=== PATIENT | male | born 1970 | race Caucasian/White ===

== ENCOUNTER 2018-10-29 13:12 | Outpatient (CLI) | payer OTHER, SELFPAY ==
--- NOTE | 2018-10-29 13:23 | DI.RAD_ITS ---
SYMPTOM/DIAGNOSIS: COUGH,WHEEZING, R05,R06.2 PA AND LATERAL CHEST: The cardiac and mediastinal contours have a normal appearance. The lungs are well inflated and clear. No infiltrate or effusion is seen. IMPRESSION: Negative chest xray.
== END 2018-10-29 13:32 ==
PROVIDERS: PCP Nurse Practitioner Family; Visit Provider Nurse Practitioner Family
DX: R05 Cough (principal); R06.2 Wheezing
CPT/HCPCS: 71046

== ENCOUNTER 2021-04-11 09:27 | Outpatient (REF) | payer BC, SELFPAY ==
[2021-04-11 13:35] LABS: Calculated LDL 141 mg/dL (<100); Cholesterol 210 mg/dL (<200); HDL Cholesterol 58 mg/dL (40-60); Triglyceride 59 mg/dL (<150)
== END 2021-04-11 09:28 | disposition home or self-care (01) ==
LOC: NCHCN 09:27
PROVIDERS: PCP Nurse Practitioner Family; Visit Provider Internal Medicine
DX: Z00.00 Encounter for general adult medical examination without abnormal findings (principal); Z13.220 Encounter for screening for lipoid disorders
CPT/HCPCS: 80061

== ENCOUNTER 2025-01-07 08:24 | Emergency (ER) | payer BC, SELFPAY ==
[2025-01-07 08:29] VITALS: BP 128/77; PULSE 84; RESP 18; TEMP 37.1; O2SAT 95
--- NOTE | 2025-01-07 08:30 | DI.RAD_ITS ---
Exam(s) XR HIP RT COMPLETE AP PELVIS EXAM: XR HIP RT COMPLETE AP PELVIS CLINICAL HISTORY: R hip pain. TECHNIQUE: 2D digital imaging was performed of the right hip. Two images were obtained. AP pelvis a nd lateral right hip views were obtained. COMPARISON: CR RIGHT HIP COMPLETE from 02/04/2013 FINDINGS: BONES: No acute fracture is present. No bony destructive lesion is seen. JOINTS: No dislocation present. There are mild degenerative changes seen in the right hip. The left hip is well maintained. SOFT TISSUE: Normal. IMPRESSION: No acute fracture or dislocation. DATA REPOSITORY: RADIATION DOSE DELIVERED:
--- NOTE | 2025-01-07 08:30 | DI.RAD_ITS ---
Exam(s) XR LUMBAR SPINE COMPLETE EXAM: XR LUMBAR SPINE COMPLETE CLINICAL HISTORY: Right leg radiculopathy. TECHNIQUE: 2D digital imaging was performed of the lumbar spine. Five images were obtained. AP, la teral, right oblique, left oblique and L5-S1 spot views were obtained. COMPARISON: No exams were available for comparison FINDINGS: BONES: No fracture or destructive lesion. There are endplate osteophytes at several levels of the lum bar spine. There is a Schmorl's node at the inferior aspect of L1. No facet hypertrophy identified. DISKS: There is disc space narrowing at L1-L2, L3-L4 and L4-L5. ALIGNMENT: There is a left convex lumbar scoliosis. No spondylolysis or spondylolisthesis. SOFT TISSUE: Normal. IMPRESSION: 1. Moderate degenerative changes seen in the lumbar spine. 2. No acute fracture or subluxation. DATA REPOSITORY: RADIATION DOSE DELIVERED:
--- NOTE | 2025-01-07 08:35 | ED.GENADUL_ITS ---
Discharge Plan Disposition Patient Disposition: Home Condition: Stable Discharge Details Clinical Impression: Degenerative joint disease (DJD) of hip, Degenerative joint disease (DJD) of lumbar spine Primary Care Provider: Eleni Ventura ED Provider: Catrachita Benitez Home Meds and New Rx's Prescriptions: New cyclobenzaprine 10 mg tablet 10 mg PO TID PRN (Reason: muscle spasm) Qty: 10 0RF Rx Instructions: Take 1 tablet up to 3 times daily as needed for muscle spasm oxycodone-acetaminophen [Percocet] 5-325 mg tablet 1 tab PO Q8H PRN (Reason: pain) Qty: 7 0RF Rx Instructions: Take 1 tablet 3 times with food daily as needed for moderate to severe pain prednisone 50 mg tablet 50 mg PO DAILY 5 Days Qty: 5 0RF Rx Instructions: Take 1 tablet daily for the next 5 days Discharge Instructions Instructions: Osteoarthritis, Hip pain in adults Additional Instructions: At this time x-rays show degenerative changes or osteoarthritis in your lower back and your bilateral hips. Please take the medications as prescribed over the next few days. Only take the Percocet as needed for moderate to severe pain or to sleep. Do not operate heavy machinery while taking this medication as it may make you sleepy. Please take the medications with food. Alternate ice and heat you can also apply topical Voltaren cream which you can get [id number]. Please take Tylenol or Ibuprofen with food every 4-6 hours as needed for pain and swelling. Follow up with primary care provider in 3-5 days. Return to ED sooner if any worsening or concerns. Thank you for allowing us to care for you today. Referrals: Eleni Ventura [Primary Care Provider] - 3 days Discharge Data Discharge Date/Time-TO BE ENTERED AT DEPARTURE: 01/07/25 10:32 HPI General Mode of arrival: ambulatory . Date/Time Provider Initiated Documentation: 01/07/25 08:27 . Limitations to Documentation: no limitations . Information obtained by: patient, RN notes reviewed and old records reviewed . HPI Narrative: 54-year-old male presents to the ER with a chief complaint of right hip pain which radiates into his right thigh and knee which has been worse over the last 2 weeks. He does have a history of radiculopathy with foot drop. He has not been seen here since 2012. He has been followed for this at [facility]. Takes Aleve for his pain. He denies any recent injuries however he does do heavy lifting and shoveling. He denies any problems urinating or burning with urination. Denies any numbness tingling loss of bowel or bladder control. He did take some Aleve this morning prior to arrival. No other associated symptoms. Related Data Home Medications ?Medication ?Instructions ?Recorded ?Confirmed cyclobenzaprine 10 mg tablet 10 mg PO TID PRN muscle spasm #10 01/07/25 tabs oxycodone-acetaminophen 5 mg-325 1 tab PO Q8H PRN pain #7 tabs 01/07/25 mg tablet (Percocet) prednisone 50 mg tablet 50 mg PO DAILY Inflammation 5 days 01/07/25 #5 tabs Previous Rx's ?Medication ?Instructions ?Recorded cyclobenzaprine 10 mg tablet 10 mg PO TID PRN muscle spasm #10 01/07/25 tabs oxycodone-acetaminophen 5 mg-325 1 tab PO Q8H PRN pain #7 tabs 01/07/25 mg tablet (Percocet) prednisone 50 mg tablet 50 mg PO DAILY Inflammation 5 days 01/07/25 #5 tabs Allergies Allergy/AdvReac Type Severity Reaction Status Date / Time No Known Allergies Allergy Unverified 01/07/25 08:31 General Stated Complaint: Nk/Back Pain MERT: 3 Review of Systems All systems reviewed & are unremarkable except as noted in HPI and below Genitourinary Genitourinary: Denies hematuria, Denies genital pain, Denies dysuria, Denies scrotal swelling, Denies testicular mass and Denies testicular pain Musculoskeletal Musculoskeletal: Reports as per HPI, Reports abnormal gait (mild limp), Denies back pain, Reports arthralgias (Right hip), Reports radiating pain into limb (Right thigh) and Reports stiffness Neurologic Neurologic: Reports abnormal gait (mild limp), Reports localized weakness (Hx of r foot drop x 11 yrs) and Reports radicular pain Exam Narrative Exam Narrative: Constitutional: Alert and oriented x3. Appears stated age. Normal body habitus. Head: Normocephalic, no trauma. Eyes: Pupils PERRL, Red reflex noted, EOM's intact. Eyelids symmetrical without lesions, discharge, or swelling. ENT: Bilateral TM's WNL, External ear normal to inspection, no mastoid TTP, swelling, or erythema, Nasal turbinates WNL, no nasal discharge. Normal dentition, Posterior pharynx WNL, no exudate. Chest: RRR, Normal S1, S2, distal pulses intact. Resp: Lungs clear to auscultation bilaterally, no wheezes, rales, or rhonchi. Abdomen: Soft, non-distended, Normoactive bowel sounds all 4 quads. Musculoskeletal: Normal gait, Moves all 4 extremities without difficulty. Skin: No suspicious rashes or lesions. Capillary refill less than 2 sec. Neurologic: Cranial nerves II-XII intact. Alert and oriented x 3. Motor: No deficits noted. Sensory: Intact bilaterally all 4 extremities. Hematologic/Lymphatic: No ecchymosis, no lymphadenopathy. Back/Spine/Pelvis Thoracic/Lumbar Spine: thoracic and lumbar spine normal to inspection Pelvis: no pain with anterior-posterior compression Course Vital Signs Vital signs: Vital Signs Temperature 37.1 C 01/07/25 08:29 Pulse 84 01/07/25 08:29 Respiratory Rate 18 01/07/25 08:29 Blood Pressure 128/77 01/07/25 08:29 Pulse Oximetry 95 01/07/25 08:29 Temperature 37.1 C 01/07/25 08:29 Temperature Source Oral 01/07/25 08:29 Pulse 84 01/07/25 08:29 Respiratory Rate 18 01/07/25 08:29 Blood Pressure 128/77 01/07/25 08:29 Pulse Oximetry 95 01/07/25 08:29 Medical Decision Making 54-year-old male presents to the ER with a chief complaint of right hip pain which radiates into his right thigh and knee which has been worse over the last 2 weeks. He does have a history of radiculopathy with foot drop. He has not been seen here since 2012. He has been followed for this at [facility]. Takes Aleve for his pain. He denies any recent injuries however he does do heavy lifting and shoveling. He denies any problems urinating or burning with urination. Denies any numbness tingling loss of bowel or bladder control. He did take some Aleve this morning prior to arrival. No other associated symptoms. X-ray of right hip and L-spine ordered due to radiculopathy. Percocet, prednisone and Flexeril. X-rays show degenerative changes. No acute fracture or dislocation. Patient feeling better. X-rays show degenerative changes. Will discharge with the above medications with instructions to follow-up as needed. Patient discharged home ambulatory without assistance. This text was generated using [employer] system, please disregard any oddities of phrase or misspellings. Imaging Data Radiologic Study: Imaging: X-Ray Radiologist's impression: TECHNIQUE: Imaging protocol: Radiologic exam of the right hip. Views: 2 or 3 views hip with pelvis when performed. COMPARISON: CR XR LUMBAR SPINE COMPLETE 01/07/2025 8:50 AM FINDINGS: Bones/joints: Degenerative changes in both hips and sacroiliac joints. There is no evidence of acute fracture.There is no evidence of malalignment or dislocation. Soft tissues: Unremarkable. IMPRESSION: There is no evidence of acute fracture.There is no evidence of malalignment or dislocation. Thank you for allowing us to participate in the care of your patient. Dictated and Authenticated by: Jose Byrnes MD Radiologic Study #2: Imaging: X-Ray Radiologist's impression: Views: 4 or 5 views. COMPARISON: No relevant prior studies available. FINDINGS: Bones/joints: Levoscoliosis of the lumbar spine. There is no evidence of acute fracture.There is no evidence of malalignment or dislocation. Intervertebral disc spaces are narrowed L1/L2 and L3 through S1 consistent with degenerative disc disease. Anterior osteophyte formation L2 through L5 Soft tissues: Unremarkable. IMPRESSION: 1. There is no evidence of acute fracture.There is no evidence of malalignment or dislocation. 2. Intervertebral disc spaces are narrowed L1/L2 and L3 through S1 consistent with degenerative disc disease. Thank you for allowing us to participate in the care of your patient. Dictated and Authenticated by: Jose Byrnes MD Quality:SDOH Health Related Social Needs: No Data to Display PFSH All Active Problems (Updated 01/07/25 @ 10:13 by Catrachita Benitez NP) Degenerative joint disease (DJD) of lumbar spine (Acute) Degenerative joint disease (DJD) of hip (Acute) Social History Smoking/Tobacco Use Status: Former Tobacco Use Smoking risk assessment performed?: Yes Alcohol Intake: current Alcohol Intake frequency: a few times a week Drug use: Never Substance use type: does not use Do you feel safe at home: Yes Do you feel safe in your relationship?: Yes PAWSS Have you Been Recently Intoxicated or Drunk Within the Last 30 days?: No Have you Ever Experienced Previous Episodes of Alcohol Withdrawal?: No Have you ever Experienced Withdrawal Seizures?: No Have you ever Experienced Delirium Tremens(DT)s?: No Have you ever undergone Alcohol Rehabilitation Treatment (i.e, inpt ot outpatient treatment programs)?: No Have you ever Experienced Blackouts?: No Have you ever Combined Alcohol with other Downers within the last 90 days?: No Have you ever Combined Alcohol with any other Substance of Abuse during the last 90 days?: No Positive Blood Alcohol level on Presentation? [PCS.BAL]: No Evidence of Increased Autonomic Activity (i.e. HR>120, tremor, sweating, agitation, nausea)?: No Result: 0
[2025-01-07] MEDS: oxyCODONE 5 mg/Acetaminophen 325 mg TAB 1 TAB PO (09:06)
[2025-01-07] MEDS: Cyclobenzaprine 10 MG TAB PO (09:06)
[2025-01-07] MEDS: predniSONE 20 MG TAB 60 MG PO (09:07)
--- NOTE | 2025-01-07 09:55 | DI.VRAD_ITS ---
PROCEDURE INFORMATION: Exam: XR Right Hip Exam date and time: 01/07/2025 8:55 AM Age: 54 years old Clinical indication: Other: Right leg radiculopathy TECHNIQUE: Imaging protocol: Radiologic exam of the right hip. Views: 2 or 3 views hip with pelvis when performed. COMPARISON: CR XR LUMBAR SPINE COMPLETE 01/07/2025 8:50 AM FINDINGS: Bones/joints: Degenerative changes in both hips and sacroiliac joints. There is no evidence of acute fracture.There is no evidence of malalignment or dislocation. Soft tissues: Unremarkable. IMPRESSION: There is no evidence of acute fracture.There is no evidence of malalignment or dislocation. Dictated and Authenticated by: Jose Byrnes MD. Orderin Emmanuel Domínguez MD
[2025-01-07 09:56] VITALS: BP 133/73; PULSE 88; RESP 16; O2SAT 97
--- NOTE | 2025-01-07 09:56 | DI.VRAD_ITS ---
PROCEDURE INFORMATION: Exam: XR Lumbosacral Spine Exam date and time: 01/07/2025 8:50 AM Age: 54 years old Clinical indication: Other: Right leg radiculopathy TECHNIQUE: Imaging protocol: Radiologic exam of the lumbosacral spine. Views: 4 or 5 views. COMPARISON: No relevant prior studies available. FINDINGS: Bones/joints: Levoscoliosis of the lumbar spine. There is no evidence of acute fracture.There is no evidence of malalignment or dislocation. Intervertebral disc spaces are narrowed L1/L2 and L3 through S1 consistent with degenerative disc disease. Anterior osteophyte formation L2 through L5 Soft tissues: Unremarkable. IMPRESSION: 1. There is no evidence of acute fracture.There is no evidence of malalignment or dislocation. 2. Intervertebral disc spaces are narrowed L1/L2 and L3 through S1 consistent with degenerative disc disease. Dictated and Authenticated by: Jose Byrnes MD. Orderin Emmanuel Domínguez MD
[2025-01-07 10:29] VITALS: BP 125/66; PULSE 79; RESP 16; O2SAT 97
== END 2025-01-07 10:32 | disposition home or self-care (01) ==
PROVIDERS: Emergency Provider Registered Nurse Emergency; PCP Nurse Practitioner Family
DX: M16.11 Unilateral primary osteoarthritis, right hip (principal); M47.26 Other spondylosis with radiculopathy, lumbar region
CPT/HCPCS: 99283; 72110; 73502; J7512

== ENCOUNTER 2025-01-11 17:49 | Outpatient (REF) | payer BC, SELFPAY ==
[2025-01-11 21:28] LABS: ALT 49 U/L (16-63); AST 34 U/L (15-37); Albumin 4.1 g/dL (3.4-5.0); Alkaline Phosphatase 92 U/L (46-116); Anion Gap 5.4 mmol/L (3-11); BUN 19 mg/dL (7-18); CO2 30.6 mmol/L (21.0-32.0); CREATININE 0.9 mg/dL (0.70-1.30); Calculated LDL 149 mg/dL (<100); Chloride 102 mmol/L (98-107); Cholesterol 232 mg/dL (<200); Estimated GFR 101.49 (mL/min/1.73m2); Glucose 219 mg/dL (74-106); HDL Cholesterol 62 mg/dL (40-60); Potassium 4.5 mmol/L (3.5-5.1); Sodium 138 mmol/L (136-145); Total Protein 7.8 g/dL (6.4-8.2); Triglyceride 105 mg/dL (<150)
== END 2025-01-11 17:50 | disposition home or self-care (01) ==
LOC: NCHCN 17:49
PROVIDERS: PCP Nurse Practitioner Family; Visit Provider Internal Medicine
DX: E78.5 Hyperlipidemia, unspecified (principal)
CPT/HCPCS: 80053; 80061

== ENCOUNTER 2025-01-14 05:35 | Emergency (ER) | payer BC, SELFPAY ==
[2025-01-14 05:39] VITALS: BP 162/97; PULSE 87; RESP 18; TEMP 36.4; O2SAT 96
--- NOTE | 2025-01-14 05:42 | ED.GENADUL_ITS ---
Discharge Plan Disposition Patient Disposition: Home Condition: Stable Discharge Details Clinical Impression: Lumbar radiculopathy, right Primary Care Provider: Eleni Ventura ED Provider: Samson Parikh Home Meds and New Rx's Prescriptions: New gabapentin 300 mg capsule 300 mg PO TID Qty: 30 0RF Rx Instructions: take twice a day on the 01/15 then three times a day on 01/16 and there after methylprednisolone [Medrol ([place])] 4 mg tablets,dose pack See Rx Instructions .ROUTE .COMPLEX Qty: 21 0RF Rx Instructions: orally per package directions morphine 15 mg tablet 15 mg PO Q6H PRN (Reason: severe pain (scale score 7-10)) Qty: 16 0RF naloxone 4 mg/actuation spray,non-aerosol 4 mg intranasal Q2-3M PRN (Reason: opioid overdose) Qty: 2 0RF Rx Instructions: spray 1 dose into ONE nostril; alternate nostrils w each dose until help arrives Discontinued cyclobenzaprine 10 mg tablet 10 mg PO TID PRN (Reason: muscle spasm) Qty: 10 0RF Rx Instructions: Take 1 tablet up to 3 times daily as needed for muscle spasm oxycodone-acetaminophen [Percocet] 5-325 mg tablet 1 tab PO Q8H PRN (Reason: pain) Qty: 7 0RF Rx Instructions: Take 1 tablet 3 times with food daily as needed for moderate to severe pain Discharge Instructions Instructions: Radiculopathy of the neck and back (including sciatica), How to Give Naloxone ED, Opioids for Short-Term Treatment of Pain ED Additional Instructions: I suspect this pain is nerve related from the lumbar spine given its distribution and your description of the pain. You may discontinue the cyclobenzaprine and the oxycodone?acetaminophen. We will start you on gabap entin for the neuropathic portion of your pain. We will try another steroid dosing regimen. You may take 1 g of acetaminophen every 8 hours. You may take the morphine for severe pain. I provided naloxone prescription for safety reasons but if medications are taken as directed you should do fine. Please contact your primary care physician on Thursday for follow-up. Return to ED for any bladder or bowel dysfunction, loss of sensation, leg weakness that is new or different than your chronic foot drop, other concerns. Referrals: Eleni Ventura [Primary Care Provider] - HPI General Mode of arrival: ambulatory . Date/Time Provider Initiated Documentation: 01/14/25 05:42 . Limitations to Documentation: no limitations . Information obtained by: patient and RN notes reviewed . HPI Narrative: Patient presents to ED with worsening right sided lumbar pain radiating down the lateral thigh to the front of the knee. Pain is described as burning at this point. He was seen here on January 07 for similar pain though currently much worse and now burning. He was placed on prednisone for 5 days. He did follow- up with primary care and has been referred to physical therapy. Pain significantly worse over the last couple of days. He has chronic right foot drop and wears a brace. He has some old numbness from the lateral calf down to the dorsum of the foot that developed along with the foot drop. He has had previous back surgery. He denies having any bladder or bowel dysfunction and no perineal numbness or tingling. He has no new weakness. Denies any abdominal pain. Pain does not appear to to be worse with movement. Related Data Home Medications ?Medication ?Instructions ?Recorded ?Confirmed gabapentin 300 mg capsule 300 mg PO TID #30 caps 01/14/25 methylprednisolone 4 mg tablets in See Rx Instructions PO .COMPLEX 01/14/25 a dose pack (Medrol ([place])) #21 dose pk morphine 15 mg immediate release 15 mg PO Q6H PRN severe pain 01/14/25 tablet (scale score 7-10) #16 tabs naloxone 4 mg/actuation nasal spray 4 mg intranasal Q2-3M PRN opioid 01/14/25 overdose #2 ea Previous Rx's ?Medication ?Instructions ?Recorded gabapentin 300 mg capsule 300 mg PO TID #30 caps 01/14/25 methylprednisolone 4 mg tablets in See Rx Instructions PO .COMPLEX 01/14/25 a dose pack (Medrol ([place])) #21 dose pk morphine 15 mg immediate release 15 mg PO Q6H PRN severe pain 01/14/25 tablet (scale score 7-10) #16 tabs naloxone 4 mg/actuation nasal spray 4 mg intranasal Q2-3M PRN opioid 01/14/25 overdose #2 ea Allergies Allergy/AdvReac Type Severity Reaction Status Date / Time No Known Allergies Allergy Unverified 01/14/25 05:42 General Stated Complaint: Orthopedic MERT: 4 Exam Narrative Exam Narrative: Const: WDWN male in NAD. VS per triage. HEENT: NC/AT. Normal facial exam. Neck: Supple. Trachea midline. Lungs: Normal respiratory effort. Back: No TLS spine tenderness. No significant muscle tenderness elicited in the lower back. Neuro: A+O x 3. Normal speech, mentation. Cranial nerves II - XII grossly intact. Old right foot drop and decreased distal RLE sensation. No new weakness or sensory change. Plantar flexion, knee flexion/extension and hip flexion/extension in tact. Ext: No C/C/E. Course Vital Signs Vital signs: Vital Signs Temperature 97.6 F 01/14/25 05:39 Pulse 87 01/14/25 05:39 Respiratory Rate 18 01/14/25 05:39 Blood Pressure 162/97 H 01/14/25 05:39 Pulse Oximetry 96 01/14/25 05:39 Temperature 97.6 F 01/14/25 05:39 Temperature Source Tympanic 01/14/25 05:39 Pulse 87 01/14/25 05:39 Respiratory Rate 18 01/14/25 05:39 Blood Pressure 162/97 H 01/14/25 05:39 Blood Pressure Position Standing 01/14/25 05:39 Pulse Oximetry 96 01/14/25 05:39 Oxygen Delivery Method Room Air 01/14/25 05:39 Oxygen Flow Rate 0 01/14/25 05:39 Pain Level 9 01/14/25 05:39 Medical Decision Making Patient returns to ED with worsening right-sided back and thigh pain which seems to fit the L3/L4 dermatome. Previously has had L4-L5 back surgery and does have right foot drop and sensory changes in the L5 distribution which is old. Has taken 5 days of 50 mg prednisone. Has been using muscle relaxer and oxycodone with acetaminophen. Did see primary care and referred for physical therapy. Now pain is much worse and burning in nature very suggestive of neuropathic pain. No new neurologic changes and no indication for emergent MRI imaging. There is no suggestion of cauda equina. Will discontinue the cyclobenzaprine and the oxycodone with acetaminophen. Will start on gabapentin. Will redo anot her steroid pulse, use Medrol Dosepak. Continue plain Tylenol and provide prescription for immediate release morphine for severe pain. I did review the [facility] website and only previous prescription was for the oxycodone/acetaminophen. Will also provide prescription for naloxone though should be fine if he takes morphine as prescribed. He will need close follow-up with primary care and should call them Thursday. Return precautions provided. Medical Records Medical records reviewed: Yes I reviewed the patient's medical records. Medical records narrative: [facility] website PFS All Active Problems Lumbar radiculopathy, right (Acute) Degenerative joint disease (DJD) of lumbar spine (Acute) Degenerative joint disease (DJD) of hip (Acute) Medical History Foot drop, right foot Surgical History Previous back surgery Social History Smoking/Tobacco Use Status: Former Tobacco Use Smoking risk assessment performed?: Yes Alcohol Intake: current Alcohol Intake frequency: a few times a week Drug use: Never Substance use type: does not use Do you feel safe at home: Yes Do you feel safe in your relationship?: Yes
[2025-01-14] MEDS: MORPHine IR 15 MG TAB PO (06:18)
[2025-01-14] MEDS: Gabapentin 300 MG CAP PO (06:19)
== END 2025-01-14 06:21 | disposition home or self-care (01) ==
PROVIDERS: Emergency Provider Emergency Medicine; PCP Nurse Practitioner Family
DX: M54.16 Radiculopathy, lumbar region (principal); M21.371 Foot drop, right foot; Z87.891 Personal history of nicotine dependence
CPT/HCPCS: 99283

== ENCOUNTER 2025-02-07 00:56 | Outpatient (CLI) | payer BC, SELFPAY ==
--- NOTE | 2025-02-07 08:20 | DI.MRI_ITS ---
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 TECHNIQUE: Multiplanar multisequence MRI of the Lumbar spine was performed. COMPARISON: MR MR Lumbar Spine WO from 03/20/2013 CR,XR XR LUMBAR SPINE COMPLETE from 01/07/2025 FINDINGS: As evident on recent plain films there is transitional anatomy. There is partial sacralization of th e L5 segment. There are rudimentary T12 ribs. In Conus medullaris is at normal level. There is no evidence of conus mass nor subjacent clumping of in trathecal nerve roots to suggest arachnoiditis. The distal thecal sac appears unremarkable.There is no evidence of Tarlov intrasacral cysts nor other significant findings within the sacral canal Bones:There are no fractures nor ominous osseous lesions in the lumbar vertebral bodies and visualize d sacrum. Benign intraosseous hemangioma is noted in the T12 vertebral body. There is a degenerativ e scoliosis convex left. With respect to the individual levels... T12-L1: Unremarkable L1-2: There is asymmetric disc space narrowing, more advanced on the right than left side. There is a Schmorl's node invagination in the superior endplate of L2 which is unchanged from 2013. Posteriorl y there is annular bulging and there is now a broad central-right paracentral disc protrusion which e xtends posteriorly 6 mm and is 28 mm wide, this impressing the anterior right side of the thecal sac at this level. The disc protrusion extends slightly into the floor of the exiting right neural jakob en with mild right-sided foraminal stenosis. There is no foraminal stenosis on the opposite-left willian e. Facet joints appear unremarkable at this level. L2-3: This level also exhibits asymmetric disc space narrowing on the right side, also not previously present in 2013. There is broad annular bulging at this level with a superimposed central subligamen tous disc protrusion which extends posteriorly 5 mm and is approximately 14 mm wide. This significan tly compresses the anterior thecal sac at this level. There is moderate central spinal canal stenosi s now evident at this level due to the annular bulging and disc protrusion described above, short AP dimensions of the pedicles and facet arthropathy which has slightly further progressed.There is mild right-sided foraminal stenosis at this level. Although the disc bulging does extend into the floor o f the exiting left neural foramen, there does not appear to be significant left-sided foraminal steno sis at this level. L3-4: This level exhibits advanced relatively uniform disc space narrowing which has significantly pr ogressed when compared to 2013. There are lateral right osteophytes at this level and Modic type 2 s ub endplate fatty marrow changes on the right side at this level. There is mild annular bulging with out a distinct focal disc herniation. Central canal dimensions at this level are lower normal. The disc herniation which was previously present at this level in 2013 is no longer seen. There is some posterior bony ridging in the floor both exiting neural foramen at this level. There is mild bilater al foraminal stenosis. Mild degenerative changes are noted in the facet joints. L4-5: This level exhibits advanced symmetrical disc space narrowing, similar to 2013. Postsurgical ch anges again noted in the right lateral recess, appearing similar to previous. There is mild right-si ded foraminal stenosis again noted, slightly further progressed. On the left side there is a disc pr otrusion in the left lateral recess and extending into the floor of the exiting left neural foramen. This disc protrusion extends posteriorly 4 mm as seen on the sagittal images and extends into the fl oor of the exiting left neural foramen. There is mild-moderate left-sided foraminal stenosis at this level. This left-sided disc protrusion and foraminal narrowing were not evident in 2013. There are mild degenerative changes in the facet joints at this level. L5-S1: This level exhibits relatively uniform advanced disc space narrowing. There is again noted a small focal posterolateral right disc protrusion which contacts the right S1 nerve root in the right lateral recess, similar to previous. There is no disc protrusion on the left side. Central canal di mensions are lower normal. There is moderate right-sided foraminal stenosis. Only minimal if any si gnificant left-sided foraminal stenosis. Minimal facet arthropathy. Soft tissues: Benign cysts noted in both kidneys. IMPRESSION: 1. Compared to the prior MRI scan of March 2013 there has been progression of multilevel degenerative d isc findings and there is a degenerative scoliosis convex left. 2. There has been multilevel progression of degenerative disc findings as described per individual dinh qureshi above. 3. The most significant central spinal canal stenosis is at the L2-3 level (moderate), this significa ntly progressed from previous 2013 study when there was no central canal stenosis at this level. The re is also some milder narrowing of the central canal evident at the L1-2 level related to the disc p rotrusion at this level which was not evident in 2013. 4. Postoperative distortion of the right lateral recess at L4-5 level appears relatively stable. Ho wever, there is a left-sided disc protrusion in left lateral recess at this level now evident which r esults in mild-moderate left-sided foraminal stenosis at this level, this finding not previously pres ent in 2013. 5. There is a small focal disc protrusion posterolateral right-side at L5-S1 level which contacts th e right S1 nerve root in the right lateral recess at this level, this finding unchanged from 2013. Other findings as above. DATA REPOSITORY:
== END 2025-02-07 01:16 ==
LOC: DI 00:56
PROVIDERS: PCP Internal Medicine; Visit Provider Internal Medicine
DX: M48.061 Spinal stenosis, lumbar region without neurogenic claudication (principal)
CPT/HCPCS: 72148